=== PATIENT | male | born 1960 | race Caucasian/White ===

== ENCOUNTER 2020-09-18 15:30 | Emergency (ER) | payer OTHER ==
[~2020-09-18] VITALS: Ht 185.4 cm; Wt 147.0 kg
[2020-09-18 15:58] LABS: BASOPHILS % (AUTO) 1 % (0-1); EOSINOPHILS % (AUTO) 1 % (1-7); LYMPHOCYTES % (AUTO) 16 % (22-44); MEAN CORPUSCULAR HEMOGLOBIN 29.7 pg (27.5-34.5); MEAN PLATELET VOLUME 7.3 fL (7.4-10.4); MONOCYTES % (AUTO) 9 % (2-9); NEUTROPHILS % (AUTO) 73 % (42-75); PLATELET COUNT 325 x10^3/uL (130-400)
[2020-09-18 16:09] LABS: ALANINE AMINOTRANSFERASE 33 U/L (12-78); ALBUMIN 3.8 g/dL (3.4-5.0); ANION GAP 5 mmol/L (5-15); CALCIUM 9.4 mg/dL (8.5-10.1); CHLORIDE 104 mmol/L (98-107); CREATININE 0.93 mg/dL (0.7-1.3)
[2020-09-18 16:12] LABS: MD NO
[2020-09-18 16:14] LABS: ALKALINE PHOSPHATASE 89 U/L (45-117); BILIRUBIN,TOTAL 0.4 mg/dL (0.2-1.0); TOTAL PROTEIN 8.1 g/dL (6.4-8.2); TROPONIN I < 0.015 ng/mL (0.000-0.045)
--- NOTE | 2020-09-18 16:58 | NUR ---
PT BIB POV. PT REPORTS HAVING TROUBLE BREATHING. PT DENIES ANY COUGH OR CP AT THIS TIME. PT BP 190/98, PT REPORTS NOT REMEMBERING IF HE TOOK HIS BP MEDICATION TODAY. PT RESTING IN [facility], NO OTHER COMPLAINTS AT THIS TIME.
[2020-09-18 18:05] VITALS: BP 204/97
--- NOTE | 2020-09-18 18:18 | NUR ---
DR. RESENDIZ AWARE OF PT BP. PT WILL TAKE BP MEDS WITH HOME.
== END 2020-09-18 18:20 | disposition home or self-care (01) ==
LOC: ED 17:31
DX: H61.21 Impacted cerumen, right ear (principal); R06.00 Dyspnea, unspecified; R94.31 Abnormal electrocardiogram [ECG] [EKG]
CPT/HCPCS: 36415; 71045; 80053; 83880; 84484; 85025; 93005; 99285